=== PATIENT | female | born 1995 | race Caucasian/White ===

== ENCOUNTER 2017-11-05 19:11 | Outpatient (REF) | payer MEDICAID, SELFPAY ==
[2017-11-05 19:54] LABS: Iron 45 ug/dL (50-175); Total Iron Binding Capacity 346 ug/dL (250-450); Transferrin Sat 13 % (15-50)
[2017-11-05 20:08] LABS: Ferritin 58 ng/mL (8-388)
== END 2017-11-05 19:31 ==
LOC: NCHCN 19:11
PROVIDERS: PCP Nurse Practitioner Family; Visit Provider Nurse Practitioner
DX: D50.9 Iron deficiency anemia, unspecified (principal)
CPT/HCPCS: 85027; 82728; 83540; 83550

== ENCOUNTER 2020-07-14 13:58 | Outpatient (REF) | payer MEDICAID, SELFPAY ==
[2020-07-14 17:27] LABS: Abs Immature Grans 0.03 10^3/uL (0.0-0.06); Absolute Basophil Count 0.03 10^3/uL (0.0-0.2); Absolute Eosinophil Count 0.08 10^3/uL (0.0-0.7); Absolute Lymphocyte Count 2.35 10^3/uL (1.2-3.4); Absolute Monocyte Count 0.27 10^3/uL (0.1-0.8); Absolute Neutrophil Count 6.44 10^3/uL (1.2-6.7); Basophils % 0.3; Eosinophils % 0.9; HCT 37.4 % (36.0-46.0); HGB 12.8 g/dL (11.2-15.7); Immature Grans % 0.3; Lymphocytes % 25.5; MCH 29.1 pg (27.0-33.0); MCHC 34.2 % (32.0-36.0); MPV 10.7 fL (8.0-11.0); Monocytes % 2.9; Neutrophils % 70.1; Nucleated RBC 0 %; Platelet Count 329 10^3/uL (130-400); RDW 12.6 % (11.7-14.6); RDW-SD 38.8 fL
[2020-07-14 18:44] LABS: Mono Screening Negative (Negative)
== END 2020-07-14 13:59 | disposition home or self-care (01) ==
LOC: NCHCN 13:58
PROVIDERS: PCP Nurse Practitioner Family; Visit Provider Family Medicine
DX: J02.9 Acute pharyngitis, unspecified (principal)
CPT/HCPCS: 85025; 86308

== ENCOUNTER 2020-08-03 11:52 | Outpatient (REF) | payer MEDICAID, SELFPAY ==
--- NOTE | 2020-08-03 11:30 | PAPFT_PTH ---
PATIENT: Bess Tello LOC: [facility] U#:[id number] AGE/SX: 24/F ROOM: RE08/03/[address]: Shelly Agosto : 1995 BED: DIS: 08/03/2020 SPEC #: [id number] RECD: 08/04/20 13:05 STATUS: BABAK RAMSUSSEN #: [id number] MARSHALL: 08/03/20 11:[address]: Shelly Agosto DEPT: [facility] Cytology RECD BY: Radha Wilkes ENTERED: 08/04/20 13:06 SP TYPE: PAPFT ZAINAB DR: Piedad Harley Tissues: 1 - CX/ENDOCX FOR PAP SMEARS Procedures: PAP THIN PREP/UVM Screening Comments: [id number]
== END 2020-08-03 11:53 | disposition home or self-care (01) ==
LOC: NCHCN 11:52
PROVIDERS: PCP Nurse Practitioner Family; Visit Provider Nurse Practitioner Family
DX: Z12.4 Encounter for screening for malignant neoplasm of cervix (principal); Z00.00 Encounter for general adult medical examination without abnormal findings
CPT/HCPCS: 88142

== ENCOUNTER 2020-12-28 13:16 | Outpatient (REF) | payer MEDICAID, SELFPAY | END 2020-12-28 13:17 | disposition home or self-care (01) | LOC: LBN 13:16 | PROVIDERS: PCP Nurse Practitioner Family; Visit Provider Nurse Practitioner Family | DX: R35.0 Frequency of micturition (principal) | CPT/HCPCS: 87086 ==

== ENCOUNTER 2022-08-12 08:23 | Emergency (ER) | payer MEDICAID, SELFPAY ==
[2022-08-12 08:26] VITALS: BP 150/93; PULSE 114; RESP 25; TEMP 36.9; O2SAT 97
[2022-08-12 08:30] VITALS: RESP 20
--- NOTE | 2022-08-12 08:30 | RT.EKG_ITS ---
APPROVED REPORT Exam: Resting ECG Reason for Exam: dizziness Patient Location: E HR:109 bpm ECG Measurements Heart Rate 109 AXIS TN 151 P 29 QRSd 86 QRS -1 QT 341 T 4 QTc 461 Conclusion Sinus tachycardia...rate> 99 Low voltage, precordial leads...precordial leads <1.0mV
[2022-08-12 09:09] LABS: Abs Immature Grans 0.04 10^3/uL (0.0-0.06); Absolute Basophil Count 0.05 10^3/uL (0.0-0.2); Absolute Eosinophil Count 0.18 10^3/uL (0.0-0.7); Absolute Lymphocyte Count 2.46 10^3/uL (1.2-3.4); Absolute Monocyte Count 0.48 10^3/uL (0.1-0.8); Absolute Neutrophil Count 7.23 10^3/uL (1.2-6.7); Basophils % 0.5; Eosinophils % 1.7; HGB 13.4 g/dL (11.2-15.7); Immature Grans % 0.4; Lymphocytes % 23.6; MCHC 33.5 % (32.0-36.0); MCV 84 fL (80-95); MPV 9.5 fL (8.0-11.0); Monocytes % 4.6; Neutrophils % 69.2; Platelet Count 340 10^3/uL (130-400); RBC 4.78 10^6/uL (3.93-5.22); RDW 13.2 % (11.7-14.6); RDW-SD 40.3 fL; WBC 10.44 10^3/uL (4.4-10.8)
[2022-08-12] MEDS: Meclizine 25 MG TAB PO (09:09)
[2022-08-12] MEDS: Lactated Ringers 1,000 ML 1000 ML IV (09:09)
[2022-08-12 09:32] LABS: ALT 21 U/L (14-59); AST 10 U/L (15-37); Albumin 3.4 g/dL (3.4-5.0); Alkaline Phosphatase 120 U/L (46-116); Anion Gap 9.6 mmol/L (3-11); BUN 14 mg/dL (7-18); Bilirubin, Total 0.4 mg/dL (0.2-1.0); CO2 24.4 mmol/L (21.0-32.0); CREATININE 0.7 mg/dL (0.55-1.02); Calcium 8.6 mg/dL (8.5-10.1); Chloride 107 mmol/L (98-107); Estimated GFR 123.78 (mL/min/1.73m2); Glucose 102 mg/dL (74-106); Potassium 3.7 mmol/L (3.5-5.1); Sodium 141 mmol/L (136-145); TSH (W/Ref FT4) 3.26 uIU/mL (0.36-3.74); Total Protein 7.8 g/dL (6.4-8.2)
[2022-08-12 09:40] LABS: Bilirubin Negative (Negative); Blood Trace-lysed (Negative); Clarity Sl Cloudy (Clear); Glucose Negative (Negative); Ketones Negative (Negative); Leukocyte Esterase Negative (Negative); Nitrite Negative (Negative); Urobilinogen 0.2 mg/dL (Up to 0.2); pH 5.5 (5-8)
[2022-08-12 09:49] LABS: Bacteria Moderate HPF (Negative); C & S Indicated? No/Sq. Contamination; Casts Negative LPF (Negative); Crystals Negative HPF (Negative); Epithelial Cells Many HPF (Negative); Mucus Negative (Negative); RBC 0-2 HPF (0-2); WBC 0-2 HPF (0-5)
[2022-08-12 09:57] VITALS: BP 124/75; PULSE 79; RESP 16; O2SAT 98
--- NOTE | 2022-08-12 10:46 | ED.GENADUL_ITS ---
Discharge Plan Disposition Patient Disposition: Home Discharge Details Clinical Impression: Dizziness Primary Care Provider: Shelly Agosto ED Provider: Radha Constantino Home Meds and New Rx's Prescriptions: New meclizine 25 mg tablet 25 mg PO TID Qty: 14 0RF Continued levonorgestrel-ethinyl estrad 0.15-0.03 mg tablet 1 tab PO DAILY sertraline 50 mg tablet 75 mg PO DAILY Discharge Instructions Instructions: Benign Paroxysmal Positional Vertigo (ED), Dizziness (ED) Additional Instructions: Take the meclizine as needed for dizziness Increase your fluid hydration, at least 8 ounce glasses of water daily you can try looking up abraham maneuver to help with your symptoms at home Follow-up with primary care physician and return earlier should you have new or worsening complaints Medical Decision Making 26-year-old female presents with dizziness, exam is benign, vital stable Ambulatory with steady gait, nonfocal neurological exam, feeling symptomatic improvement after meclizine and fluids Diagnostic labs reviewed CBC, CMP, TSH, mag all within normal limits EKG without acute abnormality Negative test Suspect BPPV, I did consider imaging of patient's brain, however she is feeling marked improvement and ambulatory with a nonfocal exam, I think the risk outweighs the benefit at time of my assessment I did consider venous sinus thrombosis, or intracranial lesion, however my suspicion that she has these more ominous findings is low based on my clinical exam Return precautions reviewed and patient expressed understanding Medical Records Medical records reviewed: Yes I reviewed the patient's medical records. Lab Data Lab results reviewed: Yes I reviewed the patient's lab results. HPI General Date/Time Provider Initiated Documentation: 08/12/22 08:37 . HPI Narrative: This 26-year-old female with history of iron deficiency anemia and anxiety presents with report of dizziness which she describes as spinning that came on approximately 8 hours prior to arrival when she turned over in bed. Denies any head injuries or new medications. Denies any chest pain or shortness of breath. Denies any headache. Denies any strength or sensation changes. Has been able to ambulate. Has not attempted any icrk-xaf-dtjwhig medications. Denies chance of . Related Data Home Medications Medication Instructions Recorded Confirmed levonorgestrel 0.15 mg-ethinyl 1 tab PO DAILY 12/08/20 12/20/20 estradiol 0.03 mg tablet sertraline 50 mg tablet 75 mg PO DAILY 12/08/20 12/20/20 meclizine 25 mg tablet 25 mg PO TID #14 tabs 08/12/22 Previous Rx's Medication Instructions Recorded meclizine 25 mg tablet 25 mg PO TID #14 tabs 08/12/22 Allergies Allergy/AdvReac Type Severity Reaction Status Date / Time No Known Allergies Allergy Verified 12/08/20 10:13 General Stated Complaint: Dizzy/Sync MIKAEL: 3 PFSH All Active Problems (Updated 08/12/22 @ 09:50 by MATHEW Winter) Dizziness (Acute) BMI 40.0-44.9, adult (Acute) Iron deficiency anemia (Acute) Anxiety (Chronic) Menstrual spotting (Acute) Tonsillar hypertrophy (Acute) Medical History Anxiety BMI 40.0-44.9, adult Iron deficiency anemia Menstrual spotting Tonsillar hypertrophy Surgical History History of wisdom tooth extraction Social History Smoking/Tobacco Use Status: Never Smoking risk assessment performed?: Yes Alcohol Intake: current Alcohol Intake frequency: a few times a month Drug use: Never Substance use type: does not use Pets and animals: Yes Pets and animals: cat(s) Do you feel safe in your relationship?: Yes Exam Const General: cooperative, comfortable and no acute distress Orientation: alert and oriented x3 HENMT Other: Oropharynx patent, uvula midline Eyes Pupils: PERRL EOM: EOM intact bilaterally Other: No nystagmus Neck Other: No carotid bruit Resp Effort & Inspection: normal respiratory effort Auscultation: clear to auscultation bilaterally Cardio Rate: regular rate Rhythm: regular rhythm Neuro General: patient alert and patient oriented x3 Cranial Nerves: CN's II-XI intact bilaterally and tongue midline Cognition: normal cognition Speech: speech normal Gait: normal gait Motor: muscle tone normal throughout, strength 5/5 throughout and no pronator drift Other: Negative odjnjg-ufrw-bcrzqj, negative heel rosa Course Vital Signs Vital signs: Vital Signs Temperature 36.9 C 08/12/22 08:26 Pulse 114 H 08/12/22 08:26 Respiratory Rate 25 H 08/12/22 08:26 Blood Pressure 150/93 H 08/12/22 08:26 Pulse Oximetry 97 08/12/22 08:26 Temperature 36.9 C 08/12/22 08:26 Temperature Source Oral 08/12/22 08:26 Pulse 79 08/12/22 09:57 Respiratory Rate 16 08/12/22 09:57 Respiratory Effort Normal 08/12/22 08:30 Respiratory Depth Normal 08/12/22 08:30 Respiratory Pattern Normal 08/12/22 08:30 Blood Pressure 124/75 08/12/22 09:57 Blood Pressure Position Sitting 08/12/22 08:26 Pulse Oximetry 98 08/12/22 09:57 Oxygen Delivery Method Room Air 08/12/22 08:26 Oxygen Flow Rate 0 08/12/22 08:26 Pain Level 0 08/12/22 08:26 Lab/Test Results Lab/Test Results: Laboratory Tests Range/Units 08/12/22 08/12/22 08/12/22 08:57 08:57 09:33 WBC (4.4-10.8) 10^3/uL 10.44 RBC (3.93-5.22) 10^6/uL 4.78 Hgb (11.2-15.7) g/dL 13.4 Hct (36.0-46.0) % 40.0 MCV (80-95) fL 84 MCH (27.0-33.0) pg 28.0 MCHC (32.0-36.0) % 33.5 RDW (11.7-14.6) % 13.2 Plt Count (130-400) 10^3/uL 340 MPV (8.0-11.0) fL 9.5 Immature Gran % 0.4 Neutrophils % 69.2 Lymphocytes % 23.6 Monocytes % 4.6 Eosinophils % 1.7 Basophils % 0.5 Nucleated RBC % (0.0-0.3) % 0.0 Absolute Neutrophils (1.2-6.7) 10^3/uL 7.23 H Absolute Lymphocytes (1.2-3.4) 10^3/uL 2.46 Absolute Monocytes (0.1-0.8) 10^3/uL 0.48 Absolute Eosinophils (0.0-0.7) 10^3/uL 0.18 Absolute Basophils (0.0-0.2) 10^3/uL 0.05 Sodium (136-145) mmol/L 141 Potassium (3.5-5.1) mmol/L 3.7 Chloride (98-107) mmol/L 107 Carbon Dioxide (21.0-32.0) mmol/L 24.4 Anion Gap (3-11) mmol/L 9.6 BUN (7-18) mg/dL 14 Creatinine (0.55-1.02) mg/dL 0.7 Est GFR (CKD-EPI 2020) (mL/min/1.73m2) 123.78 Glucose (74-106) mg/dL 102 Calcium (8.5-10.1) mg/dL 8.6 Magnesium (1.8-2.4) mg/dL 2.0 Total Bilirubin (0.2-1.0) mg/dL 0.4 AST (15-37) U/L 10 L ALT (14-59) U/L 21 Alkaline Phosphatase (46-116) U/L 120 H Total Protein (6.4-8.2) g/dL 7.8 Albumin (3.4-5.0) g/dL 3.4 TSH (0.36-3.74) uIU/mL 3.26 Urine Color (Yellow) Yellow Urine Clarity (Clear) Sl Cloudy Urine pH (5-8) 5.5 Ur Specific [place] (1.005-1.025) 1.020 Urine Protein (Negative) mg/dL Negative Urine Ketones (Negative) mg/dL Negative Urine Blood (Negative) Trace-lysed H Urine Nitrite (Negative) Negative Urine Bilirubin (Negative) Negative Urine Urobilinogen (Up to 0.2) mg/dL 0.2 Ur Leukocyte Esterase (Negative) Negative Urine RBC (0-2) HPF 0-2 Urine WBC (0-5) HPF 0-2 Ur Epithelial Cells (Negative) HPF Many Urine Crystals (Negative) HPF Negative Urine Bacteria (Negative) HPF Moderate Urine Casts (Negative) LPF Negative Urine Mucus (Negative) Negative Ur Culture Indicated? No/Sq. Contamination Urine Glucose (Negative) mg/dL Negative POC- Test(urine) Negative
== END 2022-08-12 09:58 | disposition home or self-care (01) ==
PROVIDERS: Emergency Provider Physician Assistant; PCP Nurse Practitioner Family
DX: R42 Dizziness and giddiness (principal)
CPT/HCPCS: 36415; 80053; 81025; 93005; 96360; 99284; 81003; 81015; 83735; 84443; 85025; 93010

== ENCOUNTER 2022-11-22 15:29 | Emergency (ER) | payer MEDICAID, SELFPAY ==
[2022-11-22 15:32] VITALS: BP 173/100; PULSE 122; RESP 18; TEMP 36.7; O2SAT 98
--- NOTE | 2022-11-22 15:45 | DI.RAD_ITS ---
Exam(s) XR FINGER RT RING EXAM: XR FINGER RT RING CLINICAL HISTORY: dog bite, pain distal phalanx. TECHNIQUE: 2D digital imaging was performed. COMPARISON: No exams were available for comparison FINDINGS: 3 views No evidence of fracture nor dislocation. No radiopaque foreign body. No soft tissue gas. No promin ent soft tissue swelling. Bone density normal. No osseous lesions. No erosions IMPRESSION: No significant radiographic findings DATA REPOSITORY: RADIATION DOSE DELIVERED:
--- NOTE | 2022-11-22 15:52 | W.ED.GENAD ---
Discharge Plan Disposition Patient Disposition: Home Condition: Stable Discharge Details Clinical Impression: Dog bite of right hand, Dog bite of left hand Primary Care Provider: Viki Flores ED Provider: Quang Oneil Home Meds and New Rx's Prescriptions: New doxycycline hyclate 100 mg tablet 100 mg PO BID Qty: 7 0RF metronidazole 500 mg tablet 500 mg PO TID Qty: 11 0RF Continued levonorgestrel-ethinyl estrad 0.15-0.03 mg tablet 1 tab PO DAILY sertraline 50 mg tablet 75 mg PO DAILY Discontinued meclizine 25 mg tablet 25 mg PO PRN PRN Discharge Instructions Instructions: Animal Bite (ED) Additional Instructions: Please take antibiotics as prescribed. Your initial dose was provided here in the emergency department. Your tetanus vaccine is up-to-date. You received your vaccine in 2020. You were given initial dose of rabies vaccine and vaccine immunoglobulin today. You should return to the infusion room here at [facility] on the following days for subsequent vaccine dosin11/25/2022, 11/29/2022, 12/06/2022. Please contact your primary care physician to arrange follow-up. Return to the ER immediately for any worsening or new concerning symptoms. Discharge Data Discharge Date/Time-TO BE ENTERED AT DEPARTURE: 11/22/22 17:19 Medical Decision Making 27-year-old female here after sustaining dog bite to bilateral hands with small puncture wound distal right fourth digit. Dog not vaccinated. Consider fracture of the right fourth digit. Plan to obtain x-ray. I confirmed patient's tetanus status up-to-date -booster given 2020. Plan to initiate prophylactic antibiotic coverage with Flagyl and doxycycline. Patient has allergic reaction to amoxicillin. Plan to prophylactically treat for rabies with immunoglobulin and vaccine. Will provide initial vaccine dose today and order outpatient vaccine for expedited outpatient follow-up. -- X-ray was reviewed and interpreted by radiology: No fracture. Plan for discharge with outpatient follow-up. Usual customary discharge instructions reviewed. We have ordered outpatient rabies vaccination to expedite ongoing treatment. HPI General Mode of arrival: ambulatory. Date/Time Provider Initiated Documentation: 11/22/22 15:36. Limitations to Documentation: no limitations. Information obtained by: patient. HPI Narrative: 27-year-old female here with chief complaint of dog bite. Patient has sustained dog bite to right and left hands. 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 Bite occurred just prior to arrival. Unsure of tetanus status. Related Data Home Medications Medication Instructions Recorded Confirmed levonorgestrel 0.15 mg-ethinyl 1 tab PO DAILY 12/08/20 11/22/22 estradiol 0.03 mg tablet sertraline 50 mg tablet 75 mg PO DAILY 12/08/20 11/22/22 doxycycline hyclate 100 mg tablet 100 mg PO BID #7 tabs 11/22/22 metronidazole 500 mg tablet 500 mg PO TID #11 tabs 11/22/22 Previous Rx's Medication Instructions Recorded doxycycline hyclate 100 mg tablet 100 mg PO BID #7 tabs 11/22/22 metronidazole 500 mg tablet 500 mg PO TID #11 tabs 11/22/22 Allergies Allergy/AdvReac Type Severity Reaction Status Date / Time amoxicillin AdvReac Intermediate Hives Unverified 11/22/22 15:37 General Stated Complaint: AnimalBite MIKAEL: 3 Review of Systems Integumentary/Breasts Skin/Breast: Reports as per [facility] PFSH All Active Problems (Updated 11/22/22 @ 16:00 by Quang Oneil MD) Dog bite of right hand (Acute) Dog bite of left hand (Acute) BMI 40.0-44.9, adult (Acute) Iron deficiency anemia (Acute) Anxiety (Chronic) Menstrual spotting (Acute) Tonsillar hypertrophy (Acute) Surgical History History of wisdom tooth extraction Social History Smoking/Tobacco Use Status: Never Smoking risk assessment performed?: Yes Alcohol Intake: current Alcohol Intake frequency: a few times a month Drug use: Never Substance use type: does not use Housing: house Pets and animals: Yes Pets and animals: cat(s) Do you feel safe at home: Yes Do you feel safe in your relationship?: Yes Exam Skin Wounds: wounds noted (x) Other: Superficial scratch dorsally bilateral hands, small puncture wound distal right fourth digit at base of nail Extrem Right upper extremity: hand Details: normal capillary refill, neuromotor exam normal, neurosensory exam normal, tendon exam normal and tenderness (Distal fourth phalanx with puncture wound as noted above) Left upper extremity: hand Details: other (Superficial laceration as noted above) Course Vital Signs Vital signs: Vital Signs Temperature 36.7 C 11/22/22 15:32 Pulse 122 H 11/22/22 15:32 Respiratory Rate 18 11/22/22 15:32 Blood Pressure 173/100 H 11/22/22 15:32 Pulse Oximetry 98 11/22/22 15:32 Temperature 36.7 C 11/22/22 15:32 Temperature Source Tympanic 11/22/22 15:32 Pulse 122 H 11/22/22 15:32 Respiratory Rate 18 11/22/22 15:32 Respiratory Effort Normal, Non-Labored 11/22/22 15:35 Blood Pressure 173/100 H 11/22/22 15:32 Blood Pressure Position Sitting 11/22/22 15:32 Pulse Oximetry 98 11/22/22 15:32 PAWSS Have you Been Recently Intoxicated or Drunk Within the Last 30 days?: No Have you Ever Experienced Previous Episodes of Alcohol Withdrawal?: No Have you ever Experienced Withdrawal Seizures?: No Have you ever Experienced Delirium Tremens(DT)s?: No Have you ever undergone Alcohol Rehabilitation Treatment (i.e, inpt ot outpatient treatment programs)?: No Have you ever Experienced Blackouts?: No Have you ever Combined Alcohol with other Downers within the last 90 days?: No Have you ever Combined Alcohol with any other Substance of Abuse during the last 90 days?: No Result: 0
[2022-11-22] MEDS: metroNIDAZOLE 500 MG TAB PO (15:57)
[2022-11-22] MEDS: Doxycycline Hyclate 100 MG CAP PO (15:57)
--- NOTE | 2022-11-22 16:21 | NUR.NOTE ---
Rabies vaccination series order form faxed to Infusion Dept. Copy given to patient for referral of dates. Animal bite report form faxed to [facility] Dispatch and message left on Dennis Sims; Health Officer, [facility], [facility].Nursing Note:
[2022-11-22] MEDS: Rabies Immune Globulin 1,500 UNIT/5 ML VIAL 2177.24 UNITS IM (16:39)
[2022-11-22 17:04] VITALS: BP 120/90; PULSE 96; RESP 14; O2SAT 96
== END 2022-11-22 17:19 | disposition home or self-care (01) ==
PROVIDERS: Emergency Provider Student in an Organized Health Care Education/Training Program; PCP Nurse Practitioner Family
DX: S61.452A Open bite of left hand, initial encounter (principal); S61.451A Open bite of right hand, initial encounter; W54.0XXA Bitten by dog, initial encounter; Y93.K9 Activity, other involving animal care; Y92.531 Health care provider office as the place of occurrence of the external cause; Y99.0 Civilian activity done for income or pay; Z23 Encounter for immunization
CPT/HCPCS: 73140; 90675

== ENCOUNTER 2022-12-06 03:35 | Outpatient (RCR) | payer MEDICAID, SELFPAY ==
[2022-12-06] MEDS: Rabies vaccine (PCEC)/PF 2.5 UNITS/ML VIAL IM (07:04)
== END 2022-12-19 23:59 | disposition home or self-care (01) ==
LOC: INF 03:35
PROVIDERS: PCP Nurse Practitioner Family; Visit Provider Student in an Organized Health Care Education/Training Program
DX: Z29.14 Encounter for prophylactic rabies immune globulin (principal); Z20.3 Contact with and (suspected) exposure to rabies
CPT/HCPCS: 96372; 90675

== ENCOUNTER 2023-04-21 17:11 | Outpatient (REF) | payer MEDICAID, SELFPAY | END 2023-04-21 17:12 | disposition home or self-care (01) | LOC: LBN 17:11 | PROVIDERS: PCP Nurse Practitioner Family; Visit Provider Physician Assistant Medical | DX: J02.9 Acute pharyngitis, unspecified (principal) | CPT/HCPCS: 87070 ==

== ENCOUNTER 2023-11-02 16:20 | Outpatient (REF) | payer BC, SELFPAY ==
--- NOTE | 2023-11-02 14:20 | PAPFT_PTH ---
PATIENT: Bess Tello LOC: [facility]#:[id number] AGE/SX: 28/F ROOM: RE11/02/[address]: Viki Flores : 1995 BED: DIS: 11/02/2023 SPEC #: [id number] RECD: 11/05/23 13:00 STATUS: BABAK REVictor M #: [id number] MARSHALL: 11/02/23 14:[address]: Viki Flores DEPT: [facility] Cytology RECD BY: Radha Wilkes ENTERED: 11/05/23 13:00 SP TYPE: PAPFT OTHR DR: Unknown,Unknown Tissues: 1 - CX/ENDOCX FOR PAP SMEARS Procedures: PAP THIN PREP/UVM Screening Comments: [id number] (CHLAMYDIA/GC)
[2023-11-06 12:23] LABS: Chlamydia Result Negative (Negative); GC Result Negative (Negative)
== END 2023-11-02 16:21 | disposition home or self-care (01) ==
LOC: NCHCN 16:20
PROVIDERS: Visit Provider Nurse Practitioner Family
DX: Z00.00 Encounter for general adult medical examination without abnormal findings (principal); Z12.4 Encounter for screening for malignant neoplasm of cervix; Z11.51 Encounter for screening for human papillomavirus (HPV); Z01.419 Encounter for gynecological examination (general) (routine) without abnormal findings
CPT/HCPCS: 87491; 87591; 88142

== ENCOUNTER 2025-01-23 02:09 | Outpatient (CLI) | payer BC, MEDICAID, SELFPAY ==
[2025-01-23 10:45] LABS: Abs Immature Grans 0.02 10^3/uL (0.0-0.06); HCT 37.8 % (36.0-46.0); HGB 12.9 g/dL (11.2-15.7); Immature Grans % 0.2 %; MCH 28.0 pg (27.0-33.0); MCHC 34.1 % (32.0-36.0); MCV 82 fL (80-95); MPV 9.6 fL (8.0-11.0); Platelet Count 288 10^3/uL (130-400); RBC 4.60 10^6/uL (3.93-5.22); RDW 12.3 % (11.7-14.6); RDW-SD 36.8 fL; WBC 9.84 10^3/uL (4.4-10.8)
[2025-01-23 11:05] LABS: Hemoglobin A1C 5.0 % (<5.7)
[2025-01-23 18:58] LABS: Hepatitis C Ab w Rflx HCV PCR Negative (Negative)
[2025-01-23 19:04] LABS: HIV-1/2 Ag & Ab Screen Negative (Negative)
[2025-01-26 10:03] LABS: Rubella IgG Ab (UVM) Negative (See Note)
[2025-01-26 14:27] LABS: Syphilis IgG w/Reflex Nonreactive (Nonreactive)
== END 2025-01-23 02:10 | disposition home or self-care (01) ==
LOC: LBO 02:10
PROVIDERS: Visit Provider Advanced Practice Midwife
DX: Z34.91 Encounter for supervision of normal pregnancy, unspecified, first trimester (principal); Z68.41 Body mass index [BMI] 40.0-44.9, adult
CPT/HCPCS: 36415; 81220; 81222; 81329; 86787; 86803; 86850; 86900; 86901; 87340; 87389; 83036; 85025; 86762; 86780

== ENCOUNTER 2025-01-23 16:57 | Outpatient (REF) | payer BC, MEDICAID, SELFPAY ==
[2025-01-26 12:03] LABS: Chlamydia Result Negative (Negative); GC Result Negative (Negative)
== END 2025-01-23 16:58 | disposition home or self-care (01) ==
LOC: LBN 16:57
PROVIDERS: Visit Provider Advanced Practice Midwife
DX: Z34.91 Encounter for supervision of normal pregnancy, unspecified, first trimester (principal)
CPT/HCPCS: 87491; 87591; 87086

== ENCOUNTER 2025-01-27 16:49 | Outpatient (REF) | payer BC, MEDICAID, SELFPAY ==
[2025-01-27 21:11] LABS: Glucose Negative (Negative)
== END 2025-01-27 16:50 | disposition home or self-care (01) ==
LOC: NCHCN 16:49
DX: R30.0 Dysuria (principal)
CPT/HCPCS: 81003; 87086

== ENCOUNTER 2025-02-17 12:22 | Outpatient (CLI) | payer BC, MEDICAID, SELFPAY ==
[2025-02-20 15:51] LABS: AFP 23.4 ng/mL; Prev Pregnancy w/NTD No; RECOMMENDED FOLLOW UP None.
== END 2025-02-17 12:23 | disposition home or self-care (01) ==
LOC: LBO 12:23
PROVIDERS: Visit Provider Nurse Practitioner Obstetrics & Gynecology
DX: Z34.91 Encounter for supervision of normal pregnancy, unspecified, first trimester (principal)
CPT/HCPCS: 36415; 82105